=== PATIENT | female | born 1950 | race Caucasian/White ===

== ENCOUNTER 2018-01-31 13:16 | Day surgery (SDC) | payer MEDICARE ==
[~2018-01-31] VITALS: Ht 162.6 cm; Wt 78.2 kg
[2018-01-31] MEDS ORDERED: fentaNYL/PF 50MCG/1 ML 2ML syringe ONE (13:33)
[2018-01-31] MEDS ORDERED: MIDAZolam 5mg/5ml vial ONE (13:34)
[2018-01-31] MEDS ORDERED: NORT10CA81 CORPAK (13:35)
[2018-01-31 13:50] VITALS: BP 152/77
[2018-01-31 14:28] VITALS: BP 125/65
[2018-01-31 14:38] VITALS: BP 119/71
[2018-01-31 14:48] VITALS: BP 133/54
[2018-01-31 14:54] VITALS: BP 133/73
== END 2018-01-31 15:05 | disposition home or self-care (01) ==
LOC: GI LAB 13:16
PROVIDERS: ATTEND Internal Medicine Gastroenterology
DX: Z12.11 Encounter for screening for malignant neoplasm of colon (principal); K63.5 Polyp of colon; Z87.891 Personal history of nicotine dependence; Z98.890 Other specified postprocedural states; Z90.710 Acquired absence of both cervix and uterus; Z79.899 Other long term (current) drug therapy
CPT/HCPCS: 45385; 99153; G0500; J2250; J3010; J7030; A4620